=== PATIENT | female | born 1940 | race Caucasian/White ===

== ENCOUNTER → 2017-04-01 | Outpatient (CLI) | payer MEDICARE, BC ==
--- NOTE | 2017-04-01 16:06 | RADRPT ---
PROCEDURE: Right knee radiographs. CLINICAL INDICATION: Right knee pain. TECHNIQUE: Three views. Weight bearing. Frontal, lateral, and patellar view. COMPARISON: No prior studies are available for comparison. FINDINGS: There is no fracture or dislocation. Vascular calcifications are present consistent with atherosclerosis. There are degenerative changes with osteophytes arising from all 3 joint compartment margins. There is lateral joint compartment narrowing. There is no lytic or blastic lesion. There is no radiopaque foreign body. IMPRESSION: 1. Moderate degenerative changes of the right knee. 2. Atherosclerosis. RPTAT: QQ .Forest Campa MD, MD Date Time Electronically viewed and signed by .Forest Campa MD, MD on 04/01/2017 16:05 .R/
--- NOTE | 2017-04-10 09:12 | HKNOTE ---
DATE OF SERVICE: 04/01/2017 MAIN COMPLAINT: Pain in the right knee. HISTORY OF PRESENT ILLNESS: The patient complains of pain in her right knee which has been present for more than a year without any history of injury. She had pain in the right knee 3 years ago without history of injury but Dr. Gu treated her conservatively with physical therapy and the knee settled down. The pain started up again about 1 year ago. The pain is in the posterior aspect of the right knee. The knee frequently feels unstable. There is no swelling. There is no locking but the knee "turns inward." The pain is aggravated by walking and stair climbing. As she is walking along the knee frequently "snaps" and she gets pain when that happens. She stumbles a lot and seems to have poor balance. She currently uses a cane. She does not get rest pain. She does not take any medications for the pain. She has a great deal of difficulty on stairs for fear of falling. She has to go down very carefully. She continues to have pain in her lower back. She does not have back pain at this time. On a level surface, she can walk about 2 blocks and then she has to stop because of knee pain and back pain. She limps all the time. She can clip her toenails and tie her shoelaces. SPORTING ACTIVITY: The patient used to dance and enjoyed walking for exercise but she is no longer able to do either. PAST ORTHOPEDIC HISTORY: Previous orthopedic operations: Bunionectomy in 1997, and 2002. Internal fixation of fractured left hip in 2008. PRIOR CORTISONE INTAKE: None. ALCOHOL INTAKE: None. OTHER JOINT PROBLEMS: Wrists and feet. BLOOD TESTS FOR ARTHRITIS: None. PRIOR INJURIES TO HIPS OF KNEES: The patient fell and fractured her left hip. Internal fixation was performed by Dr. Mukherjee. WORK STATUS: The patient is retired. PAST MEDICAL HISTORY: The patient had bilateral breast biopsies, which were negative in 1979. PAST SURGICAL HISTORY: 1. Kidney transplant at [facility] 2005. 2. Two bunionectomies. 3. Internal fixation fractured hip in 2008. 4. Cataract surgery 2009. 5. Bilateral breast biopsies in . ALLERGIES: ASPIRIN. MEDICATIONS: 1. Myfortic. 2. Prednisone 5 mg daily. 3. Prograf p.o. 0.5 mg twice a day. 4. Simvastatin 20 mg daily. 5. Diltiazem ER 150 mg tablet daily. 6. Doxepin 100 mg daily. 7. Metoprolol tartrate 50 mg twice daily. 8. Pepcid 40 mg daily. 9. Sumatriptan 100 mg daily as needed. 10. Calcium. 11. Vitamin D. 12. Probiotic. 13. Vitamin B12. 14. Cranberry pills. FAMILY HISTORY: Father at 74 of congenital heart failure. Mother at 62 of polycystic kidney disease (cause for patient's kidney transplant not given). REVIEW OF SYSTEMS: Current dyspepsia, tingling sensations in her ankles. Hypertension. HABITS: The patient does not smoke or drink alcoholic beverages. LIFE GUARD: Dr. Terry Gu. PHYSICAL EXAMINATION: GENERAL: Patient is a fit-looking 76-year-old female. VITAL SIGNS: Height 5 foot 7 inches. Weight 130 pounds. Blood pressure 115/60, temperature 97.9. GAIT: Slightly antalgic gait. She walks without a walking aid. HIPS: Both hips have full range of motion without pain. Right : Alignment is normal. Extension full, flexion is full, pain on forced extension, 1+ effusion present, tender over the medial joint line, Bal's cyst is palpable. 1+ effusion. Left knee: Alignment is normal. Extension is full and pain-free. Flexion at 20 degrees, mild pain on further flexion. Collateral ligaments are intact. Cruciate ligaments are intact. 1+ effusion. 3+ crepitus of the knee and in the patella. Patella tracks normally. IMAGING: Plain x-rays of the right knee obtained today at the [facility] were reviewed. These show moderate narrowing of the medial compartment and patellofemoral joint. There is a significant remaining amount of articular joint space. There is no interosseous cyst formation and subchondral sclerosis or osteophyte formations. Moderate osteoporosis. DISCUSSION: A 76-year-old female, who had a problem with her right hip approximately [address] Gu who treated her conservatively with physical therapy. The knee settled down. The pain subsequently recurred about a year ago. It has become progressively worse. The knee frequently feels unstable. The knee does not swell. X-rays over an EF showed remarkably little other than narrowing of the medial joint space and patellofemoral joint. DIAGNOSES: 1. Mild degenerative osteoarthritis and probable internal derangement of the right knee. 2. Mild degenerative osteoarthritis of the left knee. 3. History of nephrectomy. 4. Currently on prednisone. 5. Bilateral negative breast biopsies. 6. An ancient vertebral fracture, with possible residual symptoms. 7. Allergic to aspirin. MANAGEMENT: Although she is 76 years old, she is a classic symptoms of a torn meniscus, and the x-rays do not show significant arthritis. It is highly likely that she has a torn meniscus causing the symptoms. The patient has been referred for an MRI scan of the right knee. She will be called with the result of the . Dictated By: Tom Mukherjee MD /miryam/dwayne /Document#: [id number]
--- NOTE | 2017-04-10 11:52 | HKNOTE ---
DATE OF SERVICE: 04/01/2017 Terry Gu MD [address] [place] [address]. Dear Martín: Thank you for referring Chiquita Jain, who was seen in the office today complaining of pain, swelling, and instability of the knee. She has minimal arthritis in the knee on x-ray and her symptoms are classic for an internal derangement (likely torn meniscus). She is being referred for an MRI scan of the knee and will be seen again thereafter for evaluation. Enclosed is a copy of my office note for your records. Thank you, once again for your confidence and continued support. With warmest regards, Dictated By: Tom Mukherjee MD /miryam/dwayne /Document#: [id number]
== END | disposition home or self-care (01) ==
LOC: HKI 15:10
DX: M17.11 Unilateral primary osteoarthritis, right knee (principal); M17.12 Unilateral primary osteoarthritis, left knee; I10 Essential (primary) hypertension; M25.561 Pain in right knee; Z94.0 Kidney transplant status; Z90.5 Acquired absence of kidney
CPT/HCPCS: 73562; G0463

== ENCOUNTER → 2017-06-30 | Outpatient (CLI) | payer MEDICARE, BC ==
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
== END | disposition home or self-care (01) ==
LOC: HKI 10:38
DX: M17.11 Unilateral primary osteoarthritis, right knee (principal); M23.221 Derangement of posterior horn of medial meniscus due to old tear or injury, right knee
CPT/HCPCS: 20610